=== PATIENT | male | born 1955 | race Caucasian/White ===

== ENCOUNTER 2024-05-26 15:52 | Emergency (ER) | payer BC ==
[~2024-05-26] VITALS: Ht 170.2 cm; Wt 68.0 kg
[~2024-05-26 15:52] MED LIST: CITA20TA26 PO; EMPA10TA PO; LEVE500T PO; METF-438 PO; NICO-687 TD; TRAM50TA2 PO
[2024-05-26] MEDS: LORazepam 2 mg/ml vial IV ONE (16:04)
[2024-05-26 16:23] LABS: EOSINOPHILS # (AUTO) 0.2 X10'3 (0-0.9); HEMOGLOBIN 13.2 g/dl (14.0-17.9); MEAN CORPUSCULAR VOLUME 84.7 FL (78-98)
[2024-05-26 16:24] LABS: BASOPHILS # (AUTO) 0.1 X10'3 (0-0.2); BASOPHILS % (AUTO) 0.9 % (0-1); EOSINOPHILS % (AUTO) 2.1 % (0-6); HEMATOCRIT 42.3 % (42.0-52.0); LYMPHOCYTES % (AUTO) 39.2 % (21-51); MEAN CORPUSCULAR HEMOGLOBIN 26.4 PG (27.0-31.0); MEAN CORPUSCULAR HGB CONC 31.2 g/dL (33.0-36.5); MEAN PLATELET VOLUME 10.7 FL (7.4-10.4); MONOCYTES # (AUTO) 0.7 X10'3 (0-0.9); MONOCYTES % (AUTO) 6.4 % (2-12); NEUTROPHILS # (AUTO) 5.3 X10'3 (1.8-7.7); NEUTROPHILS % (AUTO) 51.4 % (42-75); PLATELET COUNT 178 X10'3 (140-440); RED CELL DISTRIBUTION WIDTH 15.5 % (11.5-14.5); WHITE BLOOD COUNT 10.3 X10'3 (4.5-11.0)
[2024-05-26 16:33] VITALS: TEMP 98.7
[2024-05-26 16:37] LABS: ALANINE AMINOTRANSFERASE 28 U/L (12-78); ALBUMIN 3.9 G/DL (3.4-5.0); ALBUMIN/GLOBULIN RATIO 1.2 (1.1-1.5); ALKALINE PHOSPHATASE 65 IU/L (46-116); ANION GAP 24 (8-16); ASPARTATE AMINO TRANSFERASE 17 U/L (10-37); BILIRUBIN,TOTAL 0.4 MG/DL (0.1-1.0); BLOOD UREA NITROGEN 13 MG/DL (7-18); BUN/CREATININE RATIO 11.1 (10.0-20.0); CALCIUM 8.8 MG/DL (8.5-10.1); CHLORIDE 103 MMOL/L (99-107); CREATINE KINASE 58 U/L (39-308); CREATININE 1.17 MG/DL (0.60-1.10); GLUCOSE 302 MG/DL (70-104); POTASSIUM 4.3 MMOL/L (3.5-5.1); SODIUM 142 MMOL/L (135-145); TOTAL CARBON DIOXIDE 15.1 MMOL/L (24-32); TOTAL PROTEIN 7.1 G/DL (6.4-8.2); eCRCL 58 ML/MIN; eGFR 62 ML/MIN
[2024-05-26 16:39] LABS: ETHANOL < 10 MG/DL (<10)
[2024-05-26] MEDS ORDERED: levetiracetam inj 1,000 MG in normal saline 100ml IV soln 100 ML IV ONE (16:48)
[2024-05-26 16:58] LABS: APTT 25 SECONDS (22-32); INR 1.1 INR; PROTHROMBIN TIME 11.6 SECONDS (9.0-12.0)
[2024-05-26 17:06] LABS: ACANTHOCYTES 1+; BURR CELLS FEW; PLATELET ESTIMATE NORMAL
[2024-05-26] MEDS: dexamethasone sod phosphate 10mg/ml inj IV STA (17:07)
[2024-05-26] MEDS: levetiracetam-NS 1000mg/100ml 100 ML IV ONE (17:11)
[2024-05-26 17:33] VITALS: BP 131/73; PULSE 108; RESP 14; O2SAT 97
== END 2024-05-26 19:04 ==
LOC: ER 15:53
DX: I61.9 Nontraumatic intracerebral hemorrhage, unspecified (principal); Z20.822 Contact with and (suspected) exposure to COVID-19; G93.9 Disorder of brain, unspecified; R56.9 Unspecified convulsions; Z79.899 Other long term (current) drug therapy
CPT/HCPCS: 36415; 70450; 80053; 80320; 82550; 83605; 84484; 85008; 85025; 85610; 85730; 87040; 87811; 93005; 96365; 96375; 99291; J1100; J1953; J2060